=== PATIENT | female | born 1995 | race African-American/Black ===

== ENCOUNTER 2016-11-20 12:06 | Emergency (ER) | payer MEDICAID ==
[~2016-11-20] VITALS: Ht 177.8 cm; Wt 126.1 kg
[2016-11-20 12:20] VITALS: BP 145/83
[2016-11-20 14:10] LABS: Basophils # (auto) 0 uL; Basophils % (auto) 0.3 % (0.0-2.0); Eosinophils # (auto) 0.1 uL; Eosinophils % (auto) 1.2 % (0.0-7.0); Hematocrit 38.3 % (36.0-46.0); Hemoglobin 12.4 g/dL (12.2-16.2); Lymphocytes # (auto) 1.7 uL; Lymphocytes % (auto) 19.4 % (10.0-50.0); Mean Corpuscular Hgb Conc. 32.3 g/dL (32.0-36.0); Mean Corpuscular Volume 83.6 fL (80.0-100.0); Monocytes # (auto) 0.5 uL; Neutrophils # (auto) 6.7 uL; Neutrophils % (auto) 74.1 % (37.0-80.0); Platelet Count (auto) 324 10^3/uL (140-450); Red Cell Distribution Width 14.3 % (11.6-16.0)
[2016-11-20 14:30] LABS: Albumin 2.7 g/dL (3.4-5.0); BUN/Creatinine Ratio 4.8; Bilirubin, Total 0.4 mg/dL (0.2-1.0); Calcium 8.5 mg/dL (8.5-10.1); Total Protein 7.7 g/dL (6.4-8.2)
[2016-11-20 15:10] LABS: Potassium 2.9 mmol/L (3.5-5.1)
[2016-11-20] MEDS ORDERED: POTASSIUM CHL 10% (20 MEQ/15ML) ORAL SOLN PO ONE ×2 (15:15→15:45)
== END 2016-11-20 15:58 | disposition home or self-care (01) ==
LOC: ER 12:06
DX: O03.9 Complete or unspecified spontaneous abortion without complication (principal); E87.6 Hypokalemia; E66.9 Obesity, unspecified; Z68.39 Body mass index [BMI] 39.0-39.9, adult
CPT/HCPCS: 36415; 80053; 81025; 84702; 85025